=== PATIENT | male | born 1975 | race Hispanic/Latino ===

== ENCOUNTER 2021-06-10 14:10 | Emergency (ER) | payer SELFPAY ==
[~2021-06-10] VITALS: Ht 177.8 cm; Wt 88.5 kg
[~2021-06-10 14:10] MED LIST: AMIODARONE HCL200 MG PO; METOPROLOL SUCC50 MG PO; METOPROLOL TART25 MG PO; MINOCYCLINE HCL50 MG PO; ULTRAM50 MG PO; XARELTO20 MG PO
[2021-06-10] MEDS ORDERED: ACETAMINOPHEN 325 MG TAB ONE (14:34)
[2021-06-10] MEDS ORDERED: ACETAMINOPHEN 325 MG TAB PO ONE (15:00)
[2021-06-10 15:52] LABS: STREPTOCOCCUS GRP A ANTIGEN NEGATIVE (NEGATIVE)
[2021-06-10 15:58] LABS: CLARITY,URINE HAZY (CLEAR); COLOR,URINE YELLOW (YELLOW); KETONES,URINE NEGATIVE (NEGATIVE); LEUKOCYTE ESTERASE ,URINE NEGATIVE (NEGATIVE); NITRITE,URINE NEGATIVE (NEGATIVE); PROTEIN,URINE DIPSTICK NEGATIVE (NEGATIVE); URINE UROBILINOGEN 0.2 mg/dL (0.2 - 1)
[2021-06-10 16:01] LABS: INFLUENZAE A&B ANTIGEN (RAPID) NEGATIVE (NEGATIVE)
[2021-06-10 16:02] LABS: BACTERIA,URINE FEW /HPF; EPITHELIAL CELLS,URINE FEW /LPF; RBC,URINE 0-5 /HPF (0-5); WBC,URINE (MAN) 0-5 /HPF (0-5)
[2021-06-10 17:03] VITALS: BP 144/78
== END 2021-06-10 17:13 | disposition home or self-care (01) ==
LOC: ER 14:44
DX: R50.9 Fever, unspecified (principal); B34.9 Viral infection, unspecified; E78.00 Pure hypercholesterolemia, unspecified; Z20.822 Contact with and (suspected) exposure to COVID-19
CPT/HCPCS: 81001; 83518; 87070; 87400; 99283; U0002